=== PATIENT | male | born 1965 | race African-American/Black ===

== ENCOUNTER 2018-10-30 13:52 | Emergency (ER) | payer BC, OTHER ==
[2018-10-30 14:55] VITALS: BP 96/52
== END 2018-10-30 15:00 | disposition left against medical advice (07) ==
LOC: ER 13:52
DX: R42 Dizziness and giddiness (principal)
CPT/HCPCS: 36415; 71045; 80053; 83605; 84145; 84484; 85025; 85610; 85730; 87040; 93005; 96360; 96361; 99283; 99285; J7030; 99281

== ENCOUNTER 2020-02-08 17:00 | Emergency (ER) | payer BC, OTHER ==
[~2020-02-08] VITALS: Ht 172.7 cm; Wt 76.0 kg
[2020-02-08 19:14] LABS: CHLORIDE 104 mEq/L (98-107)
[2020-02-08 19:18] LABS: BASOPHILS % 0.6 % (0.0-2.0); EOSINOPHILS % 2.8 % (0.0-5.0); HEMATOCRIT. 27.7 % (42.0-52.0); LYMPHOCYTES % 25.7 % (20.0-50.0); MEAN CORPUSCULAR HEMOGLOBIN 29.2 pg (28.0-32.0); MEAN CORPUSCULAR VOLUME 90.2 fL (80.0-94.0); MEAN PLATELET VOLUME 9.5 fl (7.4-10.4); NEUTROPHILS % 61.9 % (40.0-76.0); PLATELET 81 x1000/uL (130-400); RED BLOOD CELL COUNT 3.07 mill/uL (4.7-6.1); RED CELL DISTRIBUTION WIDTH 15.3 % (11.6-14.6)
[2020-02-08 19:20] LABS: PHOSPHORUS 4.5 mg/dL (2.5-4.9)
[2020-02-08 23:15] VITALS: BP 139/72
== END 2020-02-08 23:17 | disposition home or self-care (01) ==
LOC: ER 17:00
DX: N18.6 End stage renal disease (principal); R53.1 Weakness; R42 Dizziness and giddiness; Z99.2 Dependence on renal dialysis; Z98.890 Other specified postprocedural states
CPT/HCPCS: 36415; 71045; 80053; 83735; 84100; 85025; 93005; 99285

== ENCOUNTER 2020-03-10 09:28 | Inpatient (IN) | payer BC, OTHER ==
[~2020-03-10] VITALS: Ht 172.7 cm; Wt 80.9 kg
[2020-03-10] MEDS ORDERED: VANCOMYCIN 1 G PREMIX 200 ML IV ONE (10:45)
[2020-03-10] MEDS ORDERED: CEFTRIAXONE 2 G PREMIX 50 ML IV ONE (10:45)
[2020-03-10 10:48] LABS: BASOPHILS % 0.3 % (0.0-2.0); EOSINOPHILS % 0.1 % (0.0-5.0); HEMATOCRIT. 41.5 % (42.0-52.0); HEMOGLOBIN. 13.2 g/dL (14.0-18.0); LYMPHOCYTES % 9.7 % (20.0-50.0); MEAN CORPUSCULAR VOLUME 85.2 fL (80.0-94.0); MEAN PLATELET VOLUME 9.3 fl (7.4-10.4); MONOCYTES % 7.9 % (2.0-8.0); PLATELET 92 x1000/uL (130-400); RED BLOOD CELL COUNT 4.88 mill/uL (4.7-6.1); RED CELL DISTRIBUTION WIDTH 16.3 % (11.6-14.6)
[2020-03-10 10:54] LABS: CHLORIDE 96 mEq/L (98-107)
[2020-03-10 14:00] VITALS: BP 181/110
[2020-03-10] MEDS ORDERED: CLONIDINE 0.1MG TABLET PO PRN (14:00)
[2020-03-10] MEDS ORDERED: MORPHINE SULFATE 2 MG/ML CPJ (NOT FOR IM USE) IV PRN (14:00)
[2020-03-10] MEDS ORDERED: CEFEPIME 1,000 MG in DEXTROSE 5% WATER 50 ML IV SCH (14:00)
[2020-03-10] MEDS ORDERED: ONDANSETRON HCL 4MG/2ML INJ IV PRN (14:00)
[2020-03-10] MEDS ORDERED: ACETAMINOPHEN 325MG TABLET PO PRN (14:00)
[2020-03-10] MEDS: NIFEDIPINE XL 60MG TAB PO SCH (14:49)
[2020-03-10] MEDS: CEFEPIME 1,000 MG in DEXTROSE 5% WATER 50 ML IV SCH (16:26)
[2020-03-10] MEDS: LOSARTAN POTASSIUM 100 MG TABLET PO SCH (17:45)
[2020-03-10 20:00] VITALS: BP 134/82
[2020-03-11] VITALS: BP 115/79
[2020-03-11 04:00] VITALS: BP 115/79
[2020-03-11 07:27] LABS: BASOPHILS % 0.2 % (0.0-2.0); EOSINOPHILS % 0.2 % (0.0-5.0); HEMATOCRIT. 37.2 % (42.0-52.0); HEMOGLOBIN. 11.9 g/dL (14.0-18.0); LYMPHOCYTES % 10.8 % (20.0-50.0); MEAN CORPUSCULAR HEMOGLOBIN 27.4 pg (28.0-32.0); MEAN CORPUSCULAR VOLUME 85.6 fL (80.0-94.0); MEAN PLATELET VOLUME 9.6 fl (7.4-10.4); MONOCYTES % 8.3 % (2.0-8.0); NEUTROPHILS % 80.5 % (40.0-76.0); PLATELET 82 x1000/uL (130-400); RED BLOOD CELL COUNT 4.35 mill/uL (4.7-6.1); RED CELL DISTRIBUTION WIDTH 16.3 % (11.6-14.6)
[2020-03-11] MEDS: OMEPRAZOLE 20MG CAPSULE EXTENDED RELEASE PO SCH (07:43)
[2020-03-11 08:00] VITALS: BP 130/76
[2020-03-11] MEDS: LOSARTAN POTASSIUM 100 MG TABLET PO SCH (08:51)
[2020-03-11] MEDS: NIFEDIPINE XL 60MG TAB PO SCH (08:52)
[2020-03-11] MEDS ORDERED: VANCOMYCIN 1 G PREMIX 200 ML IV SCH (11:00)
[2020-03-11 12:00] VITALS: BP 128/84
[2020-03-11] MEDS ORDERED: DIATR MEGLU/DIATRIZOATE SOLN 30ML PO SCH (13:15)
[2020-03-11] MEDS: CEFEPIME 1,000 MG in DEXTROSE 5% WATER 50 ML IV SCH (15:14)
[2020-03-11 16:00] VITALS: BP 127/77
[2020-03-11] MEDS ORDERED: IOHEXOL-300 100 ML BOTTLE ONE (17:01)
[2020-03-11 20:00] VITALS: BP 116/55
[2020-03-11] MEDS: TRAZODONE HCL 50MG TABLET PO SCH (21:10)
[2020-03-12] VITALS (7 sets, daily range): BP systolic 100–150; BP diastolic 60–87
[2020-03-12] MEDS: OMEPRAZOLE 20MG CAPSULE EXTENDED RELEASE PO SCH (06:45)
[2020-03-12] MEDS: NIFEDIPINE XL 60MG TAB PO SCH (09:00)
[2020-03-12] MEDS: LOSARTAN POTASSIUM 100 MG TABLET PO SCH (09:00)
[2020-03-12] MEDS: CEFEPIME 1,000 MG in DEXTROSE 5% WATER 50 ML IV SCH (16:42)
[2020-03-12] MEDS: TRAZODONE HCL 50MG TABLET PO SCH (20:22)
[2020-03-13] VITALS: BP 135/84
[2020-03-13 04:00] VITALS: BP 116/53
[2020-03-13] MEDS: OMEPRAZOLE 20MG CAPSULE EXTENDED RELEASE PO SCH (06:15)
[2020-03-13 08:00] VITALS: BP 114/72
[2020-03-13] MEDS: LOSARTAN POTASSIUM 100 MG TABLET PO SCH (09:06)
[2020-03-13 11:35] VITALS: BP 123/79
[2020-03-13 16:00] VITALS: BP 114/83
[2020-03-13] MEDS ORDERED: CEFTAZIDIME PENTAHYDRATE IV SCH ×2 (19:00→21:00)
[2020-03-13] MEDS ORDERED: DEXT IV SCH (19:00)
[2020-03-13] MEDS ORDERED: PERIT DIALYSIS IV SCH (19:00)
[2020-03-13 20:00] VITALS: BP 124/86
[2020-03-13] MEDS: TRAZODONE HCL 50MG TABLET PO SCH (20:21)
[2020-03-13] MEDS ORDERED: [UNRECOGNIZED DRUG - OTHER] IV SCH (21:00)
[2020-03-13] MEDS ORDERED: VANCOMYCIN IV SCH (21:00)
[2020-03-14] VITALS: BP 116/71
[2020-03-14 04:27] VITALS: BP 121/78
[2020-03-14] MEDS: OMEPRAZOLE 20MG CAPSULE EXTENDED RELEASE PO SCH (05:47)
[2020-03-14 08:00] VITALS: BP 124/88
[2020-03-14] MEDS: LOSARTAN POTASSIUM 100 MG TABLET PO SCH (09:23)
[2020-03-14 12:00] VITALS: BP 132/89
[2020-03-14 12:59] VITALS: BP 132/89
== END 2020-03-14 14:50 | disposition home health service (06) | DRG 466 ==
LOC: ER 09:47 → EDBEDREQ 11:36 → EDBEDREQTM 11:36 → EDBEDREQSVC 11:36 → 8WST 12:09 → EDBEDREQTM 12:10 → EDBEDREQ 12:10 → ENRESERV 12:28
PROVIDERS: ADMIT Internal Medicine; ATTEND Internal Medicine
PROC: 3E1M39Z Irrigation of Peritoneal Cavity using Dialysate, Percutaneous Approach (ICD-10-PCS; principal; 2020-03-10)
DX: T85.71XA Infection and inflammatory reaction due to peritoneal dialysis catheter, initial encounter (principal); A41.9 Sepsis, unspecified organism; I16.0 Hypertensive urgency; N18.6 End stage renal disease; K65.8 Other peritonitis; E43 Unspecified severe protein-calorie malnutrition; D64.9 Anemia, unspecified; D69.6 Thrombocytopenia, unspecified; E87.8 Other disorders of electrolyte and fluid balance, not elsewhere classified; E87.6 Hypokalemia; R94.31 Abnormal electrocardiogram [ECG] [EKG]; K65.2 Spontaneous bacterial peritonitis; I12.0 Hypertensive chronic kidney disease with stage 5 chronic kidney disease or end stage renal disease; K92.1 Melena; Z99.2 Dependence on renal dialysis; Z79.899 Other long term (current) drug therapy; Z68.27 Body mass index [BMI] 27.0-27.9, adult; K65.9 Peritonitis, unspecified
CPT/HCPCS: 36415; 71045; 74018; 74177; 80048; 80053; 80202; 82270; 83605; 84145; 84484; 85025; 86850; 86900; 93005; 99291; J0692; J0696; J0713; J2270; J3370; J7060; Q9963; Q9967

== ENCOUNTER 2020-04-12 11:20 | Inpatient (IN) | payer OTHER ==
[~2020-04-12] VITALS: Ht 172.7 cm; Wt 75.9 kg
[2020-04-12] MEDS ORDERED: SODIUM CHLORIDE 0.9% 1,000 ML IV ONE (12:15)
[2020-04-12] MEDS ORDERED: SODIUM CHLORIDE 0.9% 250 ML IV ONE (12:30)
[2020-04-12 15:41] LABS: BASOPHILS % 0.7 % (0.0-2.0); HEMATOCRIT. 38.6 % (42.0-52.0); HEMOGLOBIN. 12.3 g/dL (14.0-18.0); LYMPHOCYTES % 24.4 % (20.0-50.0); MEAN CORPUSCULAR HEMOGLOBIN 27.5 pg (28.0-32.0); MEAN CORPUSCULAR VOLUME 86.1 fL (80.0-94.0); MEAN PLATELET VOLUME 9.4 fl (7.4-10.4); MONOCYTES % 8.2 % (2.0-8.0); NEUTROPHILS % 65.7 % (40.0-76.0); PLATELET 113 x1000/uL (130-400); RED BLOOD CELL COUNT 4.49 mill/uL (4.7-6.1); RED CELL DISTRIBUTION WIDTH 17.5 % (11.6-14.6)
[2020-04-12 15:43] LABS: CHLORIDE 99 mEq/L (98-107)
[2020-04-12 15:47] LABS: ETHANOL BLOOD < 10 mg/dL
[2020-04-12] MEDS ORDERED: ASPIRIN 81MG TABLET PO ONE (17:30)
[2020-04-12] MEDS ORDERED: HEPARIN 25,000 UNITS PREMIX 250 ML IV PRN (18:30)
[2020-04-12] MEDS ORDERED: HEPARIN 5000 UNITS/ML VIAL IV SCH (18:42)
[2020-04-12] MEDS ORDERED: HEPARIN 5000 UNITS/ML VIAL IV PRN (20:00)
[2020-04-12] MEDS ORDERED: NOREPINEPHRINE 8MG/250ML PMX 250ML IV PRN (20:15)
[2020-04-13] MEDS: HEPARIN 5000 UNITS/ML VIAL IV PRN ×2 (03:56→14:08)
[2020-04-13] MEDS ORDERED: ONDANSETRON HCL 4MG/2ML INJ IV PRN (09:30)
[2020-04-13] MEDS ORDERED: ACETAMINOPHEN 325MG TABLET PO PRN (09:30)
[2020-04-13] MEDS: MIDODRINE HCL 5MG TABLET PO SCH ×3 (10:07→17:36)
[2020-04-13 12:08] LABS: EOSINOPHILS % 0.8 % (0.0-5.0); HEMATOCRIT. 35.8 % (42.0-52.0); HEMOGLOBIN. 11.5 g/dL (14.0-18.0); LYMPHOCYTES % 23.8 % (20.0-50.0); MEAN CORPUSCULAR HEMOGLOBIN 27.4 pg (28.0-32.0); MEAN CORPUSCULAR VOLUME 85.2 fL (80.0-94.0); MEAN PLATELET VOLUME 9.3 fl (7.4-10.4); MONOCYTES % 8.6 % (2.0-8.0); NEUTROPHILS % 65.8 % (40.0-76.0); PLATELET 100 x1000/uL (130-400); RED CELL DISTRIBUTION WIDTH 17.7 % (11.6-14.6)
[2020-04-13 15:44] VITALS: BP 95/66
[2020-04-13 16:00] VITALS: BP 95/66
[2020-04-13 17:46] VITALS: BP 93/62
[2020-04-13] MEDS ORDERED: HEPARIN 25,000 UNITS PREMIX 250 ML IV SCH (18:15)
[2020-04-13 20:00] VITALS: BP 93/64
[2020-04-13 21:11] VITALS: BP 90/62
[2020-04-13 22:00] VITALS: BP 90/62
[2020-04-13] MEDS: ATORVASTATIN CALCIUM 40MG TABLET PO SCH (22:18)
[2020-04-14] VITALS (44 sets, daily range): BP systolic 82–123; BP diastolic 45–75
[2020-04-14] MEDS: MIDODRINE HCL 5MG TABLET PO SCH ×3 (05:22→16:37)
[2020-04-14] MEDS ORDERED: NOREPINEPHRINE 8 MG in DEXT 5% WATER 242 ML IV SCH (06:00)
[2020-04-14 08:29] LABS: BASOPHILS % 0.8 % (0.0-2.0); EOSINOPHILS % 2.5 % (0.0-5.0); HEMATOCRIT. 34.5 % (42.0-52.0); MEAN CORPUSCULAR HEMOGLOBIN 27.5 pg (28.0-32.0); MEAN PLATELET VOLUME 9.7 fl (7.4-10.4); MONOCYTES % 8.6 % (2.0-8.0); NEUTROPHILS % 53.1 % (40.0-76.0); PLATELET 101 x1000/uL (130-400); RED BLOOD CELL COUNT 4.01 mill/uL (4.7-6.1); RED CELL DISTRIBUTION WIDTH 17.6 % (11.6-14.6)
[2020-04-14] MEDS ORDERED: VANCOMYCIN 1 G PREMIX 200 ML IV NR (12:30)
[2020-04-14] MEDS: CEFEPIME 1,000 MG in DEXTROSE 5% WATER 50 ML IV SCH (13:17)
[2020-04-14] MEDS: ATORVASTATIN CALCIUM 40MG TABLET PO SCH (20:57)
[2020-04-14] MEDS: SODIUM CHLORIDE 0.9% 1,000 ML IV SCH (21:01)
[2020-04-15] VITALS: BP 99/65
[2020-04-15 04:00] VITALS: BP 92/64
[2020-04-15 07:13] LABS: BASOPHILS % 0.8 % (0.0-2.0); EOSINOPHILS % 3.2 % (0.0-5.0); HEMATOCRIT. 32.3 % (42.0-52.0); HEMOGLOBIN. 10.4 g/dL (14.0-18.0); MEAN CORPUSCULAR HEMOGLOBIN 27.7 pg (28.0-32.0); MEAN CORPUSCULAR VOLUME 85.9 fL (80.0-94.0); MEAN PLATELET VOLUME 9.3 fl (7.4-10.4); MONOCYTES % 9.4 % (2.0-8.0); NEUTROPHILS % 52.6 % (40.0-76.0); PLATELET 86 x1000/uL (130-400); RED BLOOD CELL COUNT 3.75 mill/uL (4.7-6.1); RED CELL DISTRIBUTION WIDTH 17.9 % (11.6-14.6)
[2020-04-15 07:42] VITALS: BP 87/52
[2020-04-15] MEDS: MIDODRINE HCL 5MG TABLET PO SCH ×2 (08:03→12:27)
[2020-04-15] MEDS ORDERED: ENOXAPARIN 30MG/0.3ML SYR SUBCUT SCH (09:00)
[2020-04-15 11:20] VITALS: BP 98/65
[2020-04-15] MEDS: CEFEPIME 1,000 MG in DEXTROSE 5% WATER 50 ML IV SCH (12:27)
[2020-04-15] MEDS: SODIUM CHLORIDE 0.9% 1,000 ML IV SCH (13:25)
[2020-04-15 15:42] VITALS: BP 98/65
[2020-04-15 16:32] VITALS: BP 120/75
== END 2020-04-15 16:40 | disposition home or self-care (01) | DRG 720 ==
LOC: ER 11:49 → MICUSO 18:18 → EDBEDREQTM 18:19 → EDBEDREQ 18:19 → EDBEDREQTM 20:38 → EDBEDREQSVC 20:38 → 3WST 04-13 14:18 → CVICU 04-14 04:56 → 6WST 04-14 16:55
PROVIDERS: ADMIT Internal Medicine; ATTEND Internal Medicine
DX: A41.9 Sepsis, unspecified organism (principal); I21.A1 Myocardial infarction type 2; R65.21 Severe sepsis with septic shock; N18.6 End stage renal disease; E44.0 Moderate protein-calorie malnutrition; G90.8 Other disorders of autonomic nervous system; D64.9 Anemia, unspecified; F12.90 Cannabis use, unspecified, uncomplicated; E87.1 Hypo-osmolality and hyponatremia; D69.6 Thrombocytopenia, unspecified; E78.5 Hyperlipidemia, unspecified; E78.00 Pure hypercholesterolemia, unspecified; I31.9 Disease of pericardium, unspecified; Z82.49 Family history of ischemic heart disease and other diseases of the circulatory system; Z68.25 Body mass index [BMI] 25.0-25.9, adult; I10 Essential (primary) hypertension; Z87.19 Personal history of other diseases of the digestive system
CPT/HCPCS: 36415; 71045; 80048; 80053; 80061; 80202; 80320; 83880; 84145; 84443; 84484; 85025; 85651; 86140; 93005; 93306; 99291; J0692; J1644; J1650; J3370; J3490; J7030; J7050; J7060; G0480

== ENCOUNTER 2020-12-15 00:25 | Emergency (ER) | payer MEDICAID ==
[~2020-12-15] VITALS: Ht 172.7 cm; Wt 64.0 kg
[2020-12-15 00:42] VITALS: BP 158/92
== END 2020-12-15 01:35 | disposition home or self-care (01) ==
LOC: ER 00:25
DX: T82.49XA Other complication of vascular dialysis catheter, initial encounter (principal); F12.10 Cannabis abuse, uncomplicated; Z98.890 Other specified postprocedural states
CPT/HCPCS: 99283